=== PATIENT | male | born 1990 | race Caucasian/White ===

== ENCOUNTER 2016-07-09 11:38 | Emergency (ER) | payer MEDICAID ==
[~2016-07-09] VITALS: Ht 170.2 cm; Wt 79.4 kg
--- NOTE | 2016-07-09 11:38 | NUR ---
Patient BIBA and taken to bed 07 via gurney per EMS.
[2016-07-09 11:47] VITALS: BP 140/85
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
--- NOTE | 2016-07-09 12:04 | NUR ---
dr. sibley/ Gavin ([place]) evaluating patient at bedside.
[2016-07-09] MEDS ORDERED: METHOCARBAMOL 500 MG TAB PO ONE (12:10)
[2016-07-09] MEDS ORDERED: IBUPROFEN 600 MG TAB PO ONE (12:10)
--- NOTE | 2016-07-09 12:30 | NUR ---
XRAY at bedside.
--- NOTE | 2016-07-09 12:35 | NUR ---
Patient to CT via [facility].
--- NOTE | 2016-07-09 12:50 | NUR ---
PT BACK FROM CT.
[2016-07-09] MEDS ORDERED: BACITRACIN OINT 500 UNITS/GM PKT TP ONE (13:57)
[2016-07-09 14:20] VITALS: BP 133/88
== END 2016-07-09 14:20 | disposition home or self-care (01) ==
LOC: MED 11:45
DX: S16.1XXA Strain of muscle, fascia and tendon at neck level, initial encounter (principal); S60.221A Contusion of right hand, initial encounter; S09.90XA Unspecified injury of head, initial encounter; V89.2XXA Person injured in unspecified motor-vehicle accident, traffic, initial encounter; Y93.89 Activity, other specified; Y92.89 Other specified places as the place of occurrence of the external cause; Y99.8 Other external cause status
CPT/HCPCS: 70450; 72125; 73120; 99284; Q0092